=== PATIENT | female | born 1945 | race Caucasian/White ===

== ENCOUNTER 2016-12-06 09:37 | Emergency (ER) | payer MEDICARE, BC ==
[2016-12-06] MEDS ORDERED: DUONEB INH ONE (10:08)
== END 2016-12-06 14:23 | disposition home or self-care (01) ==
LOC: ER 09:37
CPT/HCPCS: 36415; 71020; 80053; 81001; 83690; 83880; 84484; 85025; 93005; 94640

== ENCOUNTER 2016-12-06 22:11 | Emergency (ER) | payer MEDICARE, BC ==
[2016-12-06] MEDS ORDERED: ASPIRIN 81 MG CHEW TAB ONE (22:54)
== END 2016-12-07 01:17 | disposition home or self-care (01) ==
LOC: ER 22:11
DX: R07.2 Precordial pain (principal)
CPT/HCPCS: 84484; 93005